=== PATIENT | female | born 1965 | race Caucasian/White ===

== ENCOUNTER 2017-07-14 07:23 | Day surgery (SDC) | payer BC ==
[~2017-07-14 07:23] MED LIST: Lactated Ringers 1,000 ML IV SCH; Lidocaine 1%/Sod Bicarbonate in NS 8.4% 1 ML Syringe IDERM PRN; Sodium Chloride 0.9% 10 ML Syringe FLUSH PRN
[2017-07-14] MEDS ORDERED: Lidocaine 1% 4 ML ONE (07:46)
[2017-07-14] MEDS ORDERED: Propofol 200 MG/20 ML SDV ONE ×2 (07:46→08:47)
[2017-07-14] MEDS ORDERED: Midazolam 1 MG/ML 2 ML SDV ONE (07:46)
--- NOTE | 2017-07-14 07:50 | PCM.PREANE ---
Preanesthetic Assessment - Procedure Proposed Procedure: screening colonoscopy - Anesthesia/Transfusion/Family Hx Anesthesia History: Prior Anesthesia Without Reaction Family History of Anesthesia Reaction: No Transfusion History: No Prior Transfusion(s) - Review of Systems General: No Symptoms Pulmonary: No Symptoms Cardiovascular: No Symptoms Gastrointestinal: No Symptoms Neurological: No Symptoms Other: Reports: Anxiety - Physical Assessment NPO Status Date: 07/13/17 NPO Status Time: 21:00 Pulse: 48 O2 Sat by Pulse Oximetry: 100 Respiratory Rate: 16 Blood Pressure: 113/78 Temperature: 98.5 F Height: 5 ft 9 in Weight: 53 kg ASA Class: 1 Mental Status: Alert & Oriented x3 Airway Class: Mallampati = 1 Dentition: Reports: Normal Dentition Thyro-Mental Finger Breadths: 3 Mouth Opening Finger Breadths: 3 ROM/Head Extension: Full Lungs: Clear to Auscultation, Normal Respiratory Effort Cardiovascular: Regular Rate, Regular Rhythm - Lab Values: refuses test- states is not - Allergies Allergies/Adverse Reactions: Allergies Allergy/AdvReac Type Severity Reaction Status Date / Time peanut Allergy Anaphylactic Verified 07/13/17 15:01 Shock - Blood Blood Available: No - Acknowledgements Anesthesia Type Planned: MAC Pt an Appropriate Candidate for the Planned Anesthesia: Yes Alternatives and Risks of Anesthesia Discussed w Pt/Guardian: Yes Pt/Guardian Understands and Agrees with Anesthesia Plan: Yes PreAnesthesia Questionnaire HEENT History: Reports: Impaired Vision Cardiovascular History: Reports: None Respiratory History: Reports: Other (See Below) Other Respiratory History: interstitial lung disease Gastrointestinal History: Reports: None Genitourinary History: Reports: None 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 (See Below) Other OB/BYN History: amenorrhea, decreased libido Musculoskeletal History: Reports: None Neurological History: Reports: Other (See Below) Other Neuro History: foot numbness and tingling, insomnia Psychiatric History: Reports: Anxiety, Other (See Below) Other Psychiatric History: fatigue Endocrine/Metabolic History: Reports: None Hematologic History: Reports: None Immunologic History: Reports: None Oncologic (Cancer) History: Reports: None Dermatologic History: Reports: Other (See Below) Other Dermatologic History: antisynthetase syndrom,e cold hands and feet, SQ nodule, suspicious nevi - Past Surgical History Head Surgeries/Procedures: Reports: None HEENT Surgical History: Reports: None Cardiovascular Surgical History: Reports: None Respiratory Surgical History: Reports: None GI Surgical History: Reports: None Female Surgical History: Reports: None, Section Male Surgical History: Reports: None Endocrine Surgical History: Reports: None Neurological Surgical History: Reports: None Musculoskeletal Surgical History: Reports: None Oncologic Surgical History: Reports: None Dermatological Surgical History: Reports: None - SUBSTANCE USE Smoking Status *Q: Never Smoker Tobacco Use Within Last Twelve Months: No Second Hand Smoke Exposure: No Days Per Week of Alcohol Use: 4 Number of Drinks Per Day: 2 Total Drinks Per Week: 8 Recreational Drug Use History: No - HOME MEDS Home Medications: Home Meds Escitalopram Oxalate 20 mg PO DAILY 07/13/17 [History] Milk Thistle 2 tab PO DAILY 07/13/17 [History] Multivitamin [Poly-Vitamin] 1 tab PO DAILY 07/13/17 [History] Norethindrone-E.estradiol-Iron [Linda 24 Fe 1 mg-20 Mcg Tablet] 1 tab PO DAILY 07/13/17 [History] Zolpidem Tartrate [Ambien] 5 mg PO BEDTIME 07/13/17 [History] - CURRENT (IN HOUSE) MEDS Current Meds: Current Medications Lactated Ringer's (Ringers, Lactated) 1,000 mls @ 125 mls/hr IV ASDIRECTED MOHIT Stop: 07/14/17 23:00 Lidocaine/Sodium Bicarbonate (Buffered Lidocaine 1% In Ns 8.4%) 0.25 ml IDERM ONETIME PRN PRN Reason: Prior to IV Start Stop: 07/14/17 18:00 Sodium Chloride (Saline Flush) 10 ml FLUSH ASDIRECTED PRN PRN Reason: Keep Vein Open Stop: 07/14/17 18:00 Discontinued Medications Lidocaine HCl (Xylocaine-Mpf 1%) Confirm Administered Dose 4 mls @ as directed .ROUTE .STK-MED ONE Stop: 07/14/17 07:47 Midazolam HCl (Versed 1 Mg/Ml) Confirm Administered Dose 2 mg .ROUTE .STK-MED ONE Stop: 07/14/17 07:47 Propofol (Diprivan 20 Ml) Confirm Administered Dose 200 mg .ROUTE .STK-MED ONE Stop: 07/14/17 07:47
--- NOTE | 2017-07-14 08:50 | PCM.OPNOTE ---
- General Post-Op/Procedure Note Date of Surgery/Procedure: 07/14/17 Operative Procedure(s): Colonoscopy Findings: Normal endoscopic examination Pre Op Diagnosis: Screening colonoscopy Post-Op Diagnosis: Normal exam Anesthesia Technique: MAC, Moderate Sedation Primary Surgeon: Lebron Velasquez Pathology: None EBL in mLs: 0 Complications: None Condition: Good Free Text/Narrative:: After adequate IV sedation and analgesia was obtained the patient was placed in the left lateral decubitus position for the procedure. Perianal inspection and digital rectal examination were performed next and were normal. A lubricated colonoscope was inserted into the rectum and advanced to the cecum through a somewhat tortuous colon without too much difficulty. The bowel preparation was excellent. The cecum right colon transverse and descending colons were endoscopically normal with no mass lesions or inflammatory changes seen. The sigmoid and rectum were unremarkable. Her rectum was small and I couldn't really do a retroflexed rectal view but on the antegrade view the distal rectum was grossly normal. Air was removed as I finished the procedure which she tolerated well. Screen Printing Supervisor photographs were taken for the patient and for the medical record.
--- NOTE | 2017-07-14 08:56 | PCM48HPAN ---
Post Anesthesia Note - EVALUATION WITHIN 48HRS OF ANESTHETIC Vital Signs in Normal Range: Yes Patient Participated in Evaluation: Yes Respiratory Function Stable: Yes Airway Patent: Yes Cardiovascular Function Stable: Yes Hydration Status Stable: Yes Pain Control Satisfactory: Yes Nausea and Vomiting Control Satisfactory: Yes Mental Status Recovered: Yes Pulse Rate: 56 SaO2: 100 Resp Rate: 16 Temperature: 98.1 F Blood Pressure: 87/61
[2017-07-14 08:57] VITALS: BP 87/61
== END 2017-07-14 09:43 | disposition home or self-care (01) ==
LOC: JD.SDS 07:23
PROVIDERS: ATTEND Surgery
DX: Z12.11 Encounter for screening for malignant neoplasm of colon (principal); F41.9 Anxiety disorder, unspecified; J84.9 Interstitial pulmonary disease, unspecified; F32.9 Major depressive disorder, single episode, unspecified; G47.30 Sleep apnea, unspecified; Z91.010 Allergy to peanuts; Z79.899 Other long term (current) drug therapy
CPT/HCPCS: 45378; J2250; J7120; J2704

== ENCOUNTER 2020-07-22 09:31 | Day surgery (SDC) | payer BC ==
[2020-07-22] MEDS ORDERED: HYDROmorphone 0.5 MG/0.5 ML Syringe IVPUSH ONE (10:04)
[2020-07-22] MEDS ORDERED: Metoclopramide 10 MG/2 ML SDV IVPUSH ONE (10:05)
[2020-07-22] MEDS ORDERED: Glucagon,Human Recombinant 1 MG Vial IVPUSH ONE (10:05)
--- NOTE | 2020-07-22 10:08 | EDM.PDOC ---
ED HPI GENERAL MEDICAL PROBLEM - General Chief Complaint: Gastrointestinal Problem Stated Complaint: DYSPHAGIA Time Seen by Provider: 07/22/20 09:55 Source of Information: Reports: Patient History Limitations: Reports: No Limitations - History of Present Illness INITIAL COMMENTS - FREE TEXT/NARRATIVE: 54-year-old female presents to the ED for evaluation of a food bolus stuck in her upper esophagus since July 20 around 1930 hrs. in the evening. She believes it is a scallop that is stuck in her throat. She subsequently is spitting up saliva. Try to drink some coffee and water this morning and probably regurgitated it. She states she has a problem with food getting stuck in her upper airway usually she can regurgitate or hiccup and get rid of the food bolus. She has no history of GERD or reflux. No surgery on her chest or esophagus. Only surgery has been a x1 on the abdomen. She denies any blood in her saliva. Pain is felt more between her shoulder blades in her back that it is anterior chest. Onset: Sudden Onset Date: 07/20/20 Onset Time: 19:30 Duration: Day(s):, Constant Location: Reports: Chest (Feels a pressure sensation in her upper chest behind the suprasternal notch mostly in her back.) Quality: Reports: Ache Severity: Moderate Improves with: Reports: None Worsens with: Reports: Other (To take fluids.) Context: Denies: Activity, Exercise, Lifting, Sick Contact, Trauma Associated Symptoms: Denies: No Other Symptoms, Confusion, Chest Pain, Cough, co ugh w sputum, Diaphoresis, Fever/Chills, Headaches, Loss of Appetite, Malaise, Nausea/Vomiting, Rash, Seizure, Shortness of Breath, Syncope, Weakness Treatments 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 She has not taken any of her regular medications either.) Epigastric Pain Score (Numeric/FACES): 3 - Related Data Allergies Allergy/AdvReac Type Severity Reaction Status Date / Time peanut Allergy Anaphylactic Verified 07/22/20 09:44 Shock Home Meds: Home Meds Multivitamin [Poly-Vitamin] 1 tab PO DAILY 07/13/17 [History] Zolpidem Tartrate [Ambien] 5 mg PO BEDTIME PRN 07/13/17 [History] norethindrone-e.estradioL-iron [Linda 24 Fe 1 mg-20 Mcg Tablet] 1 tab PO DAILY 07/13/17 [History] Cider Vinegar [Apple Cider Vinegar] 0 mg PO DAILY 07/22/20 [History] Escitalopram [Lexapro] 30 mg PO DAILY 07/22/20 [History] Melatonin 10 mg PO BEDTIME 07/22/20 [History] Omeprazole 20 mg PO DAILY 30 Days #30 tablet. 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 Neurological History: Reports: Other (See Below) Other Neuro History: foot numbness and tingling, insomnia Psychiatric History: Reports: Anxiety, Other (See Below) (Chronic insomnia) Other Psychiatric History: fatigue Endocrine/Metabolic History: Reports: None Hematologic History: Reports: None Immunologic History: Reports: None Oncologic (Cancer) History: Reports: None Dermatologic History: Reports: Other (See Below) Other Dermatologic History: antisynthetase syndrom,e cold hands and feet, SQ nodule, suspicious nevi - Infectious Disease History Infectious Disease History: Reports: Chicken Pox - Past Surgical History HEENT Surgical History: Reports: Adenoidectomy, Tonsillectomy Female Surgical History: Reports: Section Social & Family History - Tobacco Use Tobacco Use Status *Q: Never Tobacco User Second Hand Smoke Exposure: No - Caffeine Use Caffeine Use: Reports: Coffee, Energy Drinks - Alcohol Use Days Per Week of Alcohol Use: 3 Number of Drinks Per Day: 3 Total Drinks Per Week: 9 - Recreational Drug Use Recreational Drug Use: No - Living Situation & Occupation Living situation: Reports: Occupation: Employed ED ROS GENERAL - Review of Systems Review Of Systems: See Below Constitutional: Reports: Other (She reports she slept very well last night with no pain). Denies: Fever, Chills, Malaise, Weakness, Decreased Appetite HEENT: Reports: No Symptoms Respiratory: Reports: No Symptoms. Denies: Shortness of Breath, Wheezing Cardiovascular: Reports: No Symptoms Endocrine: Reports: No Symptoms GI/Abdominal: Reports: No Symptoms : Reports: No Symptoms Musculoskeletal: Reports: No Symptoms Skin: Reports: No Symptoms Neurological: Reports: No Symptoms Psychiatric: Reports: Anxiety, Depression, Other (Chronic insomnia) Hematologic/Lymphatic: Reports: No Symptoms Immunologic: Reports: No Symptoms ED EXAM, GI/ABD - Physical Exam Exam: See Below Exam Limited By: No Limitations General Appearance: Alert, WD/WN, No Apparent Distress, Other (Temperature is 36.7 degrees. Heart rate 54 and sinus bradycardia. Respiratory to 16 with O2 sats 100% room air BP 129/64) Eyes: Bilateral: Normal Appearance (No scleral icterus or blepharal pallor. Tonsils are absent.) Throat/Mouth: Normal Inspection, Normal Lips, Normal Oropharynx, Other Head: Atraumatic, Normocephalic Neck: Normal Inspection, Supple, Non-Tender, Full Range of Motion. No: Lymphadenopathy (L), Lymphadenopathy (R) Respiratory/Chest: No Respiratory Distress, Lungs Clear, Normal Breath Sounds, No Accessory Muscle Use, Chest Non-Tender Cardiovascular: Normal Peripheral Pulses, Regular Rate, Rhythm, No Edema, No Gallop, No Murmur, No Rub GI/Abdominal Exam: Normal Bowel Sounds, Soft, Non-Tender, No Organomegaly, No Mass, Pelvis Stable, Other (Incision lower abdomen from Pfannenstiel) Back Exam: Normal Inspection, Full Range of Motion. No: CVA Tenderness (L), CVA Tenderness (R) Extremities: Normal Inspection, Normal Range of Motion, Non-Tender, No Pedal Edema Neurological: Alert, Oriented, CN II-XII Intact, Normal Cognition, Normal Gait Psychiatric: Normal Affect, Normal Mood Skin Exam: Warm, Dry, Intact, Normal Color, No Rash #1 Interpretation EKG Date: 07/22/20 Time: 10:17 Rhythm: Other Rate (Beats/Min): 56 [place]: Normal P-Wave: Present QRS: Other (Left ventricle hypertrophy pattern. She is a very thin stature. Nonspecific Q waves in lead aVL.) ST-T: Normal QT: Normal EKG Interpretation Comments: Borderline ECG Course - Vital Signs Last Recorded V/S: Last Vital Signs Temp 36.4 C 07/22/20 13:30 Pulse 69 07/22/20 13:30 Resp 16 07/22/20 13:30 BP 100/67 07/22/20 13:30 Pulse Ox 96 07/22/20 13:30 - Orders/Labs/Meds Orders: Active Orders 24 hr Category Date Time Status Patient Status [ADT] Routine ADT 07/22/20 11:55 Active Dextrose 5%-0.9% NaCl [Dextrose 5%-Normal Saline] 1,000 Med 07/22/20 10:15 Active ml IV ASDIRECTED Schedule Procedure [COMM] Stat Oth 07/22/20 11:54 Ordered Medication Orders Dextrose/Sodium Chloride (Dextrose 5%-Normal Saline) 1,000 mls @ 999 mls/hr IV ASDIRECTED [facility] Last Admin: 07/22/20 10:26 Dose: 999 mls/hr Documented by: MARTY Labs: Laboratory Tests 07/22/20 07/22/20 07/22/20 Range/Units 10:15 10:15 10:15 WBC 5.18 (3.98-10.04) K/mm3 RBC 4.01 (3.98-5.22) M/mm3 Hgb 13.0 (11.2-15.7) gm/dl Hct 39.7 (34.1-44.9) % MCV 99.0 H (79.4-94.8) fl MCH 32.4 H (25.6-32.2) pg MCHC 32.7 (32.2-35.5) g/dl RDW Std Deviation 42.7 (36.4-46.3) fL Plt Count 245 (182-369) K/mm3 MPV 10.4 (9.4-12.3) fl Neut % (Auto) 59.6 (34.0-71.1) % Lymph % (Auto) 27.8 (19.3-51.7) % [place] % (Auto) 8.3 (4.7-12.5) % Eos % (Auto) 3.3 (0.7-5.8) Baso % (Auto) 1.0 (0.1-1.2) % Neut # (Auto) 3.09 (1.56-6.13) K/mm3 Lymph # (Auto) 1.44 (1.18-3.74) K/mm3 [place] # (Auto) 0.43 H (0.24-0.36) K/mm3 Eos # (Auto) 0.17 (0.04-0.36) K/mm3 Baso # (Auto) 0.05 (0.01-0.08) K/mm3 Sodium 143 (136-145) mEq/L Potassium 5.1 (3.5-5.1) mEq/L Chloride 106 (98-107) mEq/L Carbon Dioxide 28 (21-32) mEq/L Anion Gap 14.1 (5-15) BUN 20 H (7-18) mg/dL Creatinine 1.1 H (0.55-1.02) mg/dL Est Cr Clr Drug Dosing 53.36 mL/min Estimated GFR (MDRD) 52 (>60) mL/min BUN/Creatinine Ratio 18.2 H (14-18) Glucose 86 (74-106) mg/dL Calcium 8.9 (8.5-10.1) mg/dL Total Bilirubin 0.7 (0.2-1.0) mg/dL AST 26 (15-37) U/L ALT 36 (14-59) U/L Alkaline Phosphatase 48 (46-116) U/L C-Reactive Protein < 0.2 (<1.0) mg/dL Total Protein 7.4 (6.4-8.2) g/dl Albumin 3.9 (3.4-5.0) g/dl Globulin 3.5 gm/dL Albumin/Globulin Ratio 1.1 (1-2) SARS-CoV-2 RNA (ANI) Negative (NEGATIVE) Meds: Medications Generic Name Dose Route Start Last Admin Trade Name Freq PRN Reason Stop Dose Admin Dextrose/Sodium Chloride 1,000 mls @ 999 mls/hr 07/22/20 10:15 07/22/20 10:26 Dextrose 5%-Normal Saline IV 999 mls/hr ASDIRECTED MOHIT Administration Discontinued Medications Generic Name Dose Route Start Last Admin Trade Name Freq PRN Reason Stop Dose Admin Fentanyl Confirm 07/22/20 12:07 Fentanyl 100 Mcg/2 Ml Sdv Administered 07/22/20 12:08 Dose 100 mcg .ROUTE .STK-MED ONE Glucagon 1 mg 07/22/20 10:05 07/22/20 10:24 Glucagon,Human Recombinant 1 Mg Vial IVPUSH 07/22/20 10:06 1 mg ONETIME ONE Administration Hydromorphone HCl 0.5 mg 07/22/20 10:04 07/22/20 10:22 Hydromorphone 0.5 Mg/0.5 Ml Syringe IVPUSH 07/22/20 10:05 0.5 mg ONETIME ONE Administration Metoclopramide HCl 7.5 mg 07/22/20 10:05 07/22/20 10:20 Metoclopramide 10 Mg/2 Ml Sdv IVPUSH 07/22/20 10:06 7.5 mg ONETIME ONE Administration Midazolam HCl Confirm 07/22/20 12:07 Midazolam 1 Mg/Ml 2 Ml Sdv Administered 07/22/20 12:08 Dose 2 mg .ROUTE .STK-MED ONE Propofol Confirm 07/22/20 12:07 Propofol 200 Mg/20 Ml Sdv Administered 07/22/20 12:08 Dose 400 mg .ROUTE .STK-MED ONE - Radiology Interpretation Free Text/Narrative:: 54-year-old female presents to the ED with a food bolus stuck in her upper esophagus. She believes this is a piece of scallop that she was eating on Wednesday evening July 20. She felt it lodged in her upper esophagus and it has not subsequently dislodged. She cannot swallow fluids at all. She is in very little pain or discomfort. If she tries to eat or drink it causes pain between her upper shoulder blades behind the suprasternal notch. She has chronic problems with dysphagia. No history of GERD or reflux disease. Plan she will receive IV fluids to rehydrate her. She will have a a chest x-ray ECG and preoperative lab work. We will try medication i.e. Dilaudid 0.5 mg IV with Reglan 7.5 mg IV and glucagon 1 mg 20 minutes after the other meds are infused to see if we can burp the esophagus. However she is likely headed for the OR. A COVID-19 screen will be done at this time. - Re-Assessments/Exams Free Text/Narrative Re-Assessment/Exam: 07/22/20 11:10 chest x-ray done portably reveals normal cardiac silhouette and clear lung parenchyma with no infiltrates. No pneumothorax no pleural effusions. 07/22/20 11:15: Patient got no relief from the above medications I glucagon did not cause her to dislodge the foreign body. I will therefore give the surgeon on-call Dr. Valenzuela with a view to take her to the OR for EGD to remove the foreign body or pushed down into her stomach. 07/22/20 11:29 I have spoken with Dr. Valenzuela on-call surgeon he will see the patient in the ED. 07/22/20 11:30 Total white count is normal at 5.18. Differential shows 60% neutrophils. This is on the auto differential. Hemoglobin is 13.0 with hematocrit of 39.7. MCV slightly elevated 99.0. Platelet count 245,000. Sodium 143 with potassium 5.1. Chloride 106 with a bicarb of 28. Anion gap is 14.1. BUN is 20 with a creatinine of 1.1 and a GFR 52. BUN creatinine ratio slightly elevated at 18.2. Glucose is 86 with a calcium of 8.9. Liver function is normal. C-reactive protein less than 0.2 total protein 7.4 COVID-19 screen is negative. Departure - Departure Time of Disposition: 12:30 Disposition: DC/Tfer to [facility] Condition: Fair Clinical Impression: Impacted esophageal foreign body Qualifiers: Encounter type: initial encounter Qualified Code(s): T18.108A - Unspecified foreign body in esophagus causing other injury, initial encounter - Discharge Information *PRESCRIPTION DRUG MONITORING PROGRAM REVIEWED*: Not Applicable *COPY OF PRESCRIPTION DRUG MONITORING REPORT IN PATIENT ROBI: Not Applicable Sepsis Event Note (ED) - Evaluation Sepsis Screening Result: No Definite Risk - Focused Exam Vital Signs: Vital Signs Temp Pulse Resp BP Pulse Ox 07/22/20 13:30 36.4 C 69 16 100/67 96 07/22/20 13:00 36.9 C 66 14 84/55 L 97 07/22/20 12:00 58 L 16 109/73 96 07/22/20 09:40 36.7 C 54 L 16 129/64 100 - My Orders Last 24 Hours: My Active Orders 07/22/20 10:15 Dextrose 5%-0.9% NaCl [Dextrose 5%-Normal Saline] 1,000 ml IV ASDIRECTED - Assessment/Plan Last 24 Hours: My Active Orders 07/22/20 10:15 Dextrose 5%-0.9% NaCl [Dextrose 5%-Normal Saline] 1,000 ml IV ASDIRECTED
[2020-07-22] MEDS ORDERED: Dextrose 5%-0.9% NaCl 1,000 ML IV SCH (10:15)
--- NOTE | 2020-07-22 10:47 | CR ---
Chest: Portable view of the chest was obtained. Comparison: Prior chest x-ray of 01/23/19. Heart size and mediastinum are normal. Lungs are clear with no acute parenchymal change. Stable scoliosis is noted within the spine. Impression: 1. Nothing acute is seen on portable chest x-ray. Diagnostic code #2
--- NOTE | 2020-07-22 12:03 | PCM.PREANE ---
Preanesthetic Assessment - Anesthesia/Transfusion/Family Hx Anesthesia History: Prior Anesthesia Without Reaction Family History of Anesthesia Reaction: No Transfusion History: No Prior Transfusion(s) - Review of Systems General: No Symptoms Pulmonary: No Symptoms, Other Cardiovascular: No Symptoms, Other Gastrointestinal: Other (dysphagia on occassional basis, denies any heartburn or reflux) Neurological: No Symptoms Other: Reports: Anxiety - Physical Assessment NPO Status Date: 07/20/20 NPO Status Time: 20:00 Vital Signs: Last Vital Signs Temp 36.7 C 07/22/20 09:40 Pulse 54 L 07/22/20 09:40 Resp 16 07/22/20 09:40 BP 129/64 07/22/20 09:40 Pulse Ox 100 07/22/20 09:40 Height: 1.75 m Weight: 57.153 kg ASA Class: 2E Mental Status: Alert & Oriented x3 Airway Class: Mallampati = 2 Dentition: Reports: Normal Dentition Thyro-Mental Finger Breadths: 3 Mouth Opening Finger Breadths: 3 ROM/Head Extension: Full Lungs: Clear to Auscultation, Normal Respiratory Effort Cardiovascular: Regular Rate, Regular Rhythm - Lab Values: Laboratory Last Values WBC 5.18 K/mm3 (3.98-10.04) 07/22/20 10:15 RBC 4.01 M/mm3 (3.98-5.22) 07/22/20 10:15 Hgb 13.0 gm/dl (11.2-15.7) 07/22/20 10:15 Hct 39.7 % (34.1-44.9) 07/22/20 10:15 MCV 99.0 fl (79.4-94.8) H 07/22/20 10:15 MCH 32.4 pg (25.6-32.2) H 07/22/20 10:15 MCHC 32.7 g/dl (32.2-35.5) 07/22/20 10:15 RDW Std Deviation 42.7 fL (36.4-46.3) 07/22/20 10:15 Plt Count 245 K/mm3 (182-369) 07/22/20 10:15 MPV 10.4 fl (9.4-12.3) 07/22/20 10:15 Neut % (Auto) 59.6 % (34.0-71.1) 07/22/20 10:15 Lymph % (Auto) 27.8 % (19.3-51.7) 07/22/20 10:15 [place] % (Auto) 8.3 % (4.7-12.5) 07/22/20 10:15 Eos % (Auto) 3.3 (0.7-5.8) 07/22/20 10:15 Baso % (Auto) 1.0 % (0.1-1.2) 07/22/20 10:15 Neut # (Auto) 3.09 K/mm3 (1.56-6.13) 07/22/20 10:15 Lymph # (Auto) 1.44 K/mm3 (1.18-3.74) 07/22/20 10:15 [place] # (Auto) 0.43 K/mm3 (0.24-0.36) H 07/22/20 10:15 Eos # (Auto) 0.17 K/mm3 (0.04-0.36) 07/22/20 10:15 Baso # (Auto) 0.05 K/mm3 (0.01-0.08) 07/22/20 10:15 Sodium 143 mEq/L (136-145) 07/22/20 10:15 Potassium 5.1 mEq/L (3.5-5.1) 07/22/20 10:15 Chloride 106 mEq/L (98-107) 07/22/20 10:15 Carbon Dioxide 28 mEq/L (21-32) 07/22/20 10:15 Anion Gap 14.1 (5-15) 07/22/20 10:15 BUN 20 mg/dL (7-18) H 07/22/20 10:15 Creatinine 1.1 mg/dL (0.55-1.02) H 07/22/20 10:15 Est Cr Clr Drug Dosing 53.36 mL/min 07/22/20 10:15 Estimated GFR (MDRD) 52 mL/min (>60) 07/22/20 10:15 BUN/Creatinine Ratio 18.2 (14-18) H 07/22/20 10:15 Glucose 86 mg/dL (74-106) 07/22/20 10:15 Calcium 8.9 mg/dL (8.5-10.1) 07/22/20 10:15 Total Bilirubin 0.7 mg/dL (0.2-1.0) 07/22/20 10:15 AST 26 U/L (15-37) 07/22/20 10:15 ALT 36 U/L (14-59) 07/22/20 10:15 Alkaline Phosphatase 48 U/L (46-116) 07/22/20 10:15 C-Reactive Protein < 0.2 mg/dL (<1.0) 07/22/20 10:15 Total Protein 7.4 g/dl (6.4-8.2) 07/22/20 10:15 Albumin 3.9 g/dl (3.4-5.0) 07/22/20 10:15 Globulin 3.5 gm/dL 07/22/20 10:15 Albumin/Globulin Ratio 1.1 (1-2) 07/22/20 10:15 SARS-CoV-2 RNA (ANI) Negative (NEGATIVE) 07/22/20 10:15 - Imaging/EKG Impressions: sb at 56 LVH with nonspecific Q waves - Allergies Allergies/Adverse Reactions: Allergies Allergy/AdvReac Type Severity Reaction Status Date / Time peanut Allergy Anaphylactic Verified 07/22/20 09:44 Shock - Blood Blood Available: No Product(s) Available: None - Anesthesia Plan Pre-Op Medication Ordered: None - Acknowledgements Anesthesia Type Planned: MAC Pt an Appropriate Candidate for the Planned Anesthesia: Yes Alternatives and Risks of Anesthesia Discussed w Pt/Guardian: Yes Pt/Guardian Understands and Agrees with Anesthesia Plan: Yes PreAnesthesia Questionnaire HEENT History: Reports: Impaired Vision Cardiovascular History: Reports: None Respiratory History: Reports: Other (See Below) Other Respiratory History: interstitial lung disease Gastrointestinal History: Reports: None Genitourinary History: Reports: None 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 Neurological History: Reports: Other (See Below) Other Neuro History: foot numbness and tingling, insomnia Psychiatric History: Reports: Anxiety, Other (See Below) (Chronic insomnia) Other Psychiatric History: fatigue Endocrine/Metabolic History: Reports: None Hematologic History: Reports: None Immunologic History: Reports: None Oncologic (Cancer) History: Reports: None Dermatologic History: Reports: Other (See Below) Other Dermatologic History: antisynthetase syndrom,e cold hands and feet, SQ nodule, suspicious nevi - Infectious Disease History Infectious Disease History: Reports: Chicken Pox - Past Surgical History HEENT Surgical History: Reports: Adenoidectomy, Tonsillectomy Female Surgical History: Reports: Section - SUBSTANCE USE Tobacco Use Status *Q: Never Tobacco User Second Hand Smoke Exposure: No Days Per Week of Alcohol Use: 3 Number of Drinks Per Day: 3 Total Drinks Per Week: 9 Recreational Drug Use History: No - HOME MEDS Home Medications: Home Meds Multivitamin [Poly-Vitamin] 1 tab PO DAILY 07/13/17 [History] Zolpidem Tartrate [Ambien] 5 mg PO BEDTIME PRN 07/13/17 [History] norethindrone-e.estradioL-iron [Linda 24 Fe 1 mg-20 Mcg Tablet] 1 tab PO DAILY 07/13/17 [History] Cider Vinegar [Apple Cider Vinegar] 0 mg PO DAILY 07/22/20 [History] Escitalopram [Lexapro] 30 mg PO DAILY 07/22/20 [History] Melatonin 10 mg PO BEDTIME 07/22/20 [History] - CURRENT (IN HOUSE) MEDS Current Meds: Current Medications Dextrose/Sodium Chloride (Dextrose 5%-Normal Saline) 1,000 mls @ 999 mls/hr IV ASDIRECTED [facility] Last Admin: 07/22/20 10:26 Dose: 999 mls/hr Documented by: Discontinued Medications Glucagon (Glucagon,Human Recombinant 1 Mg Vial) 1 mg IVPUSH ONETIME ONE Stop: 07/22/20 10:06 Last Admin: 07/22/20 10:24 Dose: 1 mg Documented by: Hydromorphone HCl (Hydromorphone 0.5 Mg/0.5 Ml Syringe) 0.5 mg IVPUSH ONETIME ONE Stop: 07/22/20 10:05 Last Admin: 07/22/20 10:22 Dose: 0.5 mg Documented by: Metoclopramide HCl (Metoclopramide 10 Mg/2 Ml Sdv) 7.5 mg IVPUSH ONETIME ONE Stop: 07/22/20 10:06 Last Admin: 07/22/20 10:20 Dose: 7.5 mg Documented by:
[2020-07-22] MEDS ORDERED: fentaNYL 100 MCG/2 ML SDV ONE (12:07)
[2020-07-22] MEDS ORDERED: Propofol 200 MG/20 ML SDV ONE (12:07)
[2020-07-22] MEDS ORDERED: Midazolam 1 MG/ML 2 ML SDV ONE (12:07)
--- NOTE | 2020-07-22 12:37 | PCM.HP.2 ---
H&P History of Present Illness - General Date of Service: 07/22/20 Admit Problem/Dx: Admission Diagnosis/Problem Admission Diagnosis/Problem Food impaction of esophagus Source of Information: Patient History Limitations: Reports: No Limitations - History of Present Illness Initial Comments - Free Text/Narative: Patient was having scallops on Thursday 07/20 when something got stuck on her throat. She could not bring it up despite attempts. Could not tolerate fluids after that but able to keep down saliva. No neck pain or chest pain. She was thinking it was going to pass but symptoms persisted to this day and she decided to come to the emergency department. She denies any GERD symptoms and no stomach or esophageal surgeries. No fevers or chills. No cardiopulmonary issues. Onset of Symptoms: Reports: Sudden Duration of Symptoms: Reports: Day(s): (2), Constant Location: Reports: Chest Quality: Reports: Other (inability to swallow) Improves with: Reports: None Worsens with: Reports: None Epigastric Pain Score (Numeric/FACES): 3 - Related Data Allergies/Adverse Reactions: Allergies Allergy/AdvReac Type Severity Reaction Status Date / Time peanut Allergy Anaphylactic Verified 07/22/20 09:44 Shock Home Medications: Home Meds Multivitamin [Poly-Vitamin] 1 tab PO DAILY 07/13/17 [History] Zolpidem Tartrate [Ambien] 5 mg PO BEDTIME PRN 07/13/17 [History] norethindrone-e.estradioL-iron [Linda 24 Fe 1 mg-20 Mcg Tablet] 1 tab PO DAILY 07/13/17 [History] Cider Vinegar [Apple Cider Vinegar] 0 mg PO DAILY 07/22/20 [History] Escitalopram [Lexapro] 30 mg PO DAILY 07/22/20 [History] Melatonin 10 mg PO BEDTIME 07/22/20 [History] Omeprazole 20 mg PO DAILY 30 Days #30 tablet. 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 Neurological History: Reports: Other (See Below) Other Neuro History: foot numbness and tingling, insomnia Psychiatric History: Reports: Anxiety, Other (See Below) (Chronic insomnia) Other Psychiatric History: fatigue Endocrine/Metabolic History: Reports: None Hematologic History: Reports: None Immunologic History: Reports: None Oncologic (Cancer) History: Reports: None Dermatologic History: Reports: Other (See Below) Other Dermatologic History: antisynthetase syndrom,e cold hands and feet, SQ nodule, suspicious nevi - Infectious Disease History Infectious Disease History: Reports: Chicken Pox - Past Surgical History HEENT Surgical History: Reports: Adenoidectomy, Tonsillectomy Female Surgical History: Reports: Section Social & Family History - Tobacco Use Tobacco Use Status *Q: Never Tobacco User Second Hand Smoke Exposure: No - Caffeine Use Caffeine Use: Reports: Coffee, Energy Drinks - Alcohol Use Days Per Week of Alcohol Use: 3 Number of Drinks Per Day: 3 Total Drinks Per Week: 9 - Recreational Drug Use Recreational Drug Use: No - Living Situation & Occupation Living situation: Reports: Occupation: Employed H&P Review of Systems - Review of Systems: Review Of Systems: See Below General: Reports: No Symptoms HEENT: Reports: No Symptoms Pulmonary: Reports: No Symptoms Cardiovascular: Reports: No Symptoms Gastrointestinal: Reports: No Symptoms Genitourinary: Reports: No Symptoms Musculoskeletal: Reports: No Symptoms Exam - Exam Exam: See Below - Vital Signs Vital Signs: Last Vital Signs Temp 98.0 F 07/22/20 09:40 Pulse 58 L 07/22/20 12:00 Resp 16 07/22/20 12:00 BP 109/73 07/22/20 12:00 Pulse Ox 96 07/22/20 12:00 Weight: 57.153 kg - Exam General: Alert, Oriented, Cooperative Lungs: Normal Respiratory Effort Cardiovascular: Regular Rate, Regular Rhythm - Patient Data Lab Results Last 24 hrs: Laboratory Results - last 24 hr 07/22/20 07/22/20 07/22/20 Range/Units 10:15 10:15 10:15 WBC 5.18 (3.98-10.04) K/mm3 RBC 4.01 (3.98-5.22) M/mm3 Hgb 13.0 (11.2-15.7) gm/dl Hct 39.7 (34.1-44.9) % MCV 99.0 H (79.4-94.8) fl MCH 32.4 H (25.6-32.2) pg MCHC 32.7 (32.2-35.5) g/dl RDW Std Deviation 42.7 (36.4-46.3) fL Plt Count 245 (182-369) K/mm3 MPV 10.4 (9.4-12.3) fl Neut % (Auto) 59.6 (34.0-71.1) % Lymph % (Auto) 27.8 (19.3-51.7) % [place] % (Auto) 8.3 (4.7-12.5) % Eos % (Auto) 3.3 (0.7-5.8) Baso % (Auto) 1.0 (0.1-1.2) % Neut # (Auto) 3.09 (1.56-6.13) K/mm3 Lymph # (Auto) 1.44 (1.18-3.74) K/mm3 [place] # (Auto) 0.43 H (0.24-0.36) K/mm3 Eos # (Auto) 0.17 (0.04-0.36) K/mm3 Baso # (Auto) 0.05 (0.01-0.08) K/mm3 Sodium 143 (136-145) mEq/L Potassium 5.1 (3.5-5.1) mEq/L Chloride 106 (98-107) mEq/L Carbon Dioxide 28 (21-32) mEq/L Anion Gap 14.1 (5-15) BUN 20 H (7-18) mg/dL Creatinine 1.1 H (0.55-1.02) mg/dL Est Cr Clr Drug Dosing 53.36 mL/min Estimated GFR (MDRD) 52 (>60) mL/min BUN/Creatinine Ratio 18.2 H (14-18) Glucose 86 (74-106) mg/dL Calcium 8.9 (8.5-10.1) mg/dL Total Bilirubin 0.7 (0.2-1.0) mg/dL AST 26 (15-37) U/L ALT 36 (14-59) U/L Alkaline Phosphatase 48 (46-116) U/L C-Reactive Protein < 0.2 (<1.0) mg/dL Total Protein 7.4 (6.4-8.2) g/dl Albumin 3.9 (3.4-5.0) g/dl Globulin 3.5 gm/dL Albumin/Globulin Ratio 1.1 (1-2) SARS-CoV-2 RNA (ANI) Negative (NEGATIVE) Result Diagrams: 07/22/20 10:15 07/22/20 10:15 Sepsis Event Note - Evaluation Sepsis Screening Result: No Definite Risk - Focused Exam Vital Signs: Vital Signs Temp Pulse Resp BP Pulse Ox 07/22/20 12:00 58 L 16 109/73 96 07/22/20 09:40 98.0 F 54 L 16 129/64 100 Problem List Initiated/Reviewed/Updated: No Orders Last 24hrs: Active Orders 24 hr Category Date Time Status Patient Status [ADT] Routine ADT 07/22/20 11:55 Active EKG Documentation Completion [RC] STAT Care 07/22/20 10:07 Active Dextrose 5%-0.9% NaCl [Dextrose 5%-Normal Saline] 1,000 Med 07/22/20 10:15 Active ml IV ASDIRECTED Schedule Procedure [COMM] Stat Oth 07/22/20 11:54 Ordered Medication Orders Dextrose/Sodium Chloride (Dextrose 5%-Normal Saline) 1,000 mls @ 999 mls/hr IV ASDIRECTED [facility] Last Admin: 07/22/20 10:26 Dose: 999 mls/hr Documented by: MARTY Assessment/Plan Comment:: Patient has esophageal food impaction. I recommended EGD with disimpaction. I discussed with the patient risks, benefits and alternatives. Risks discussed included bleeding and perforation. All questions were answered and informed consent was obtained. We will proceed with the procedure.
--- NOTE | 2020-07-22 13:06 | PCM48HPAN ---
Post Anesthesia Note - EVALUATION WITHIN 48HRS OF ANESTHETIC Vital Signs in Normal Range: Yes Patient Participated in Evaluation: Yes Respiratory Function Stable: Yes Airway Patent: Yes Cardiovascular Function Stable: Yes Hydration Status Stable: Yes Pain Control Satisfactory: Yes Nausea and Vomiting Control Satisfactory: Yes Mental Status Recovered: Yes Vital Signs: Last Vital Signs Temp 36.7 C 07/22/20 09:40 Pulse 58 L 07/22/20 12:00 Resp 16 07/22/20 12:00 BP 109/73 07/22/20 12:00 Pulse Ox 96 07/22/20 12:00
[2020-07-22 13:47] VITALS: BP 100/67; PULSE 69
--- NOTE | 2020-07-22 14:06 | PROC ---
DATE OF OPERATION: 07/22/2020 SURGEON: Maureen Valenzuela MD PREOPERATIVE DIAGNOSIS: Esophageal food impaction. POSTOPERATIVE DIAGNOSIS: Esophageal food impaction. OPERATION PERFORMED: Esophagogastroduodenoscopy with food disimpaction. ANESTHESIA: Monitored anesthesia care. ESTIMATED BLOOD LOSS: Minimal. COMPLICATIONS: None. INDICATION AND CONSENT: Ms. Zaidi is a 54-year-old female, otherwise healthy, who has been having some dysphagia symptoms for some time. The patient had feeling of food impaction on Wednesday after eating scallops. The patient was not able to tolerate fluids after that, but was able to keep saliva down. She waited at home for 2 days without any relief of symptoms and eventually came to the emergency department today. Here in the ED, she was demonstrated not to tolerate fluids; therefore, surgical intervention was required, hence I was consulted. I had discussed with the patient, confirmed findings, and offered the patient an EGD with food disimpaction. We discussed risks, benefits, and alternatives including perforation and bleeding, and informed consent was obtained. DETAILS OF THE PROCEDURE: The patient was taken to the procedure room, placed in left lateral decubitus position. Monitored anesthesia care was induced and then we began the procedure. The intervention EGD was placed into the mouth after a bite block was there and taken down into the esophagus. Carefully examined the esophagus as we advanced the scope. Around 28 cm, we noted a large food bolus that was stuck and this could not go down. The prong forceps was placed and grabbed the food and removed it without any problems. The food bolus was large and was considered consistent with meat. Once this was done, and scope was placed back down into the esophagus, examined the entirety of the esophagus. At the area of the food impaction, there were some whitish plaques. This was about from 28 cm from incisors to 32 cm from incisors. GE junction was at 36 cm, and there was some irregularity and edema at the Z-line, indicating esophagitis. There was no obvious stenosis. Scope was able to easily pass into the stomach. Stomach appeared normal. Antrum appeared normal and duodenum appeared normal. On retroflexion, the hiatus appeared patulous, but there was no clear hiatal hernia. Then, the scope was taken back into the GE junction. This area appeared edematous. Biopsies were taken. Biopsies were taken in the distal esophagus as well as in the mid esophagus at the area of food impaction. Estimated blood loss was minimal. All biopsies were taken with cold forceps. The scope was placed back into the stomach, air suctioned out, and procedure was concluded. At the end of the procedure, the patient was awoken and taken to the PACU for recovery. The patient to be observed and once she tolerates fluids, she can be discharged home. MMODAL /[id number]
== END 2020-07-22 13:45 | disposition home or self-care (01) ==
LOC: JD.ED 09:31 → JD.SDS 11:42
PROVIDERS: ATTEND Surgery
DX: T18.128A Food in esophagus causing other injury, initial encounter (principal); K22.10 Ulcer of esophagus without bleeding; Z91.010 Allergy to peanuts; Z79.899 Other long term (current) drug therapy; Z98.890 Other specified postprocedural states; Z01.812 Encounter for preprocedural laboratory examination; Z20.822 Contact with and (suspected) exposure to COVID-19
CPT/HCPCS: 36415; 43239; 43247; 71045; 80053; 85025; 86140; 87635; 93005; 96374; 96375; 99285; J1170; J1610; J2250; J2704; J2765; J7042; 00731; 93010; 99140; 99284; J3010; U0002